=== PATIENT | male | born 1970 | race Two or more races ===

== ENCOUNTER 2020-03-02 16:57 | Outpatient (REF) | payer OTHER, SELFPAY | END 2020-03-02 16:58 | disposition home or self-care (01) | LOC: HO.LAB 16:57 | PROVIDERS: Visit Provider Internal Medicine | DX: Z20.828 Contact with and (suspected) exposure to other viral communicable diseases (principal) | CPT/HCPCS: C9803; U0003 ==

== ENCOUNTER 2020-03-09 16:36 | Outpatient (REF) | payer OTHER, SELFPAY | END 2020-03-09 16:37 | disposition home or self-care (01) | LOC: HO.LAB 16:36 | PROVIDERS: Visit Provider Internal Medicine | DX: Z20.822 Contact with and (suspected) exposure to COVID-19 (principal) | CPT/HCPCS: 36415; C9803; U0003 ==

== ENCOUNTER 2022-02-02 15:20 | Emergency (ER) | payer OTHER, SELFPAY ==
--- NOTE | ~2022-02-02 | XR_ITS ---
EXAMINATION: XR CHEST CLINICAL INFORMATION: Chest pain and shortness of breath. Influenza. COMPARISON: Previous chest x-ray December 2006 TECHNIQUE: 2 views of the chest were obtained. FINDINGS: The cardiac and mediastinal contours are normal. The lungs are clear. There is no pleural effusion or pneumothorax. There are degenerative changes of the spine. XR/XR chest 2V IMPRESSION: No evidence for acute disease in the chest.
[2022-02-02 15:24] VITALS: BP 116/74; PULSE 125; RESP 20; TEMP 37.4; O2SAT 97; BMI 25.7
--- NOTE | 2022-02-02 15:38 | ED_ITS ---
HPI - Chest Pain General Chief Complaint: Chest Pain <Jovan Joyce MD - Last Filed: 02/02/22 15:42> Stated Complaint: Chest Pain <Jovan Joyce MD - Last Filed: 02/02/22 15:42> Time Seen by Provider: 02/02/22 18:25 <Jovan Joyce MD - Last Filed: 02/02/22 15:42> Source: patient <Thomas Urrutia MD - Last Filed: 02/03/22 00:01> Mode of arrival: ambulatory <Thomas Urrutia MD - Last Filed: 02/03/22 00:01> History of Present Illness HPI narrative: Patient with healthy been having cold symptoms for last 2 days with cough more body aches rhinorrhea nausea vomiting few times was seen at [facility] influenza a was positive <Thomas Urrutia MD - Last File d: 02/03/22 00:01> Related Data Home Medications: Previous Rx's Medication Instructions Recorded codeine 10 mg-guaifenesin 100 mg/5 10 ml PO Q6H PRN cough #237 mL 02/02/22 mL oral liquid ibuprofen 600 mg tablet 600 mg PO Q6H PRN fever or pain 02/02/22 #30 tabs oseltamivir 75 mg capsule (Tamiflu) 75 mg PO BID 5 days #10 caps 02/02/22 <Jovan Joyce MD - Last Filed: 02/02/22 15:42> Allergies/Adverse Reactions: Allergies Allergy/AdvReac Type Severity Reaction Status Date / Time No Known Allergies Allergy Unverified 11/21/19 17:12 [No Known Allergies*] <Jovan Joyce MD - Last Filed: 02/02/22 15:42> Review of Systems Review of Systems: Yes all other systems are reviewed and are negative <Thomas Urrutia MD - Last Filed: 02/03/22 00:01> [facility] Social History Social History: Social History Smoked in Last 30 Days: No Use of substances other than those prescribed or required for medical reasons: No Advance Directives: No Advance Directives Information Provided: Yes <Jovan Joyce MD - Last Filed: 02/02/22 15:42> Physical Exam Vital Signs: Vital Signs: Last Vital Signs Temp 99.9 F 02/02/22 20:57 Pulse 120 H 02/02/22 20:57 Resp 20 02/02/22 20:57 BP 126/60 02/02/22 20:57 Pulse Ox 97 02/02/22 20:57 O2 Del Method 02/02/22 20:57 BMI result Body Mass Index 25.7 <Jovan Joyce MD - Last Filed: 02/02/22 15:42> Vital Signs: Last Vital Signs Temp 99.9 F 02/02/22 20:57 Pulse 120 H 02/02/22 20:57 Resp 20 02/02/22 20:57 BP 126/60 02/02/22 20:57 Pulse Ox 97 02/02/22 20:57 O2 Del Method 02/02/22 20:57 BMI result Body Mass Index 25.7 <Thomas Urrutia MD - Last Filed: 02/03/22 00:01> Appearance: Alert. Oriented X3. Mild distress complaining of pain although Eyes: PERRLA, No Nystagmus ENT: Pharynx normal. Oral Mucosa moist Neck: Normal inspection. Neck supple. CVS: Normal heart rate and rhythm. Pulses normal. Respiratory: No respiratory distress. Equal air entry bilateral, no wheezing/rales/rhonchi Abdomen: Soft and nontender. Bowel sounds are present, no mass palpable, no CVA tenderness Skin: Skin warm and dry. Normal skin color. Normal skin turgor. Extremities: No lower extremity edema. No calf tenderness Neuro: Oriented X 3. No motor deficit. <Thomas Urrutia MD - Last Filed: 02/03/22 00:01> Course Course Course Narrative: RME: 51-year-old male who presents emergency department for evaluation of cough, fever, chills, nasal congestion, body aches, vomiting, shortness of breath x2 days. Patient went to [email or web address] and had a positive influenza test but a negative COVID-19 test. He was then sent to the emergency department evaluation . Patient has a history of asthma. Vital signs revealed an elevated pulse of 125, O2 sat was 97% on room air. Patient is awake and alert, he does have an productive sounding cough, does not appear to be dyspneic, head normocephalic atraumatic HEENT was normal, lungs clear to auscultation, heart tachycardia normal S1-S2 no murmurs rubs or gallops, abdomen soft nontender, extremities were normal, neuro exam nonfocal. I ordered a CBC and CMP, chest x- ray two view. Patient was ordered to get normal saline IV x1 L, Toradol 15 mg IV and Zofran 4 mg IV. <Jovan Joyce MD - Last Filed: 02/02/22 15:42> Medications Administered Discontinued Medications Generic Name Dose Route Start Last Admin Trade Name Freq PRN Reason Stop Dose Admin Sodium Chloride 1,000 mls @ 999 mls/hr 02/02/22 15:39 02/02/22 18:41 Ns IV 02/02/22 16:39 999 mls/hr .Q1H1M STA Administration Ketorolac Tromethamine 15 mg 02/02/22 15:39 02/02/22 18:41 Ketorolac Tromethamine 15 Mg/Ml Vial IVPUSH 02/02/22 15:40 15 mg ONCE STA Administration Ondansetron HCl 4 mg 02/02/22 15:39 02/02/22 18:41 Ondansetron Hcl 4 Mg/2 Ml Vial IVPUSH 02/02/22 15:40 4 mg ONCE ONE Administration Oseltamivir Phosphate 75 mg 02/02/22 18:34 02/02/22 18:42 Oseltamivir Phosphate 75 Mg Capsule PO 02/02/22 18:35 75 mg ONCE ONE Administration <Jovan Joyce MD - Last Filed: 02/02/22 15:42> Medications Administered Discontinued Medications Generic Name Dose Route Start Last Admin Trade Name Freq PRN Reason Stop Dose Admin Sodium Chloride 1,000 mls @ 999 mls/hr 02/02/22 15:39 02/02/22 18:41 Ns IV 02/02/22 16:39 999 mls/hr .Q1H1M STA Administration Ketorolac Tromethamine 15 mg 02/02/22 15:39 02/02/22 18:41 Ketorolac Tromethamine 15 Mg/Ml Vial IVPUSH 02/02/22 15:40 15 mg ONCE STA Administration Ondansetron HCl 4 mg 02/02/22 15:39 02/02/22 18:41 Ondansetron Hcl 4 Mg/2 Ml Vial IVPUSH 02/02/22 15:40 4 mg ONCE ONE Administration Oseltamivir Phosphate 75 mg 02/02/22 18:34 02/02/22 18:42 Oseltamivir Phosphate 75 Mg Capsule PO 02/02/22 18:35 75 mg ONCE ONE Administration <Thomas Urrutia MD - Last Filed: 02/03/22 00:01> MDM - Chest Pain Lab Data Result diagrams: : 02/02/22 17:26 02/02/22 17:26 <Jovan Joyce MD - Last Filed: 02/02/22 15:42> Labs: Lab Results 02/02/22 02/02/22 Range/Units 17:26 17:26 WBC 5.4 (4.8-10.8) X10*3/uL RBC 5.46 (4.60-5.80) X10*6/uL Hgb 15.5 (14.0-18.0) g/dl Hct 46.7 (42.0-52.0) % MCV 85.5 (80.0-98.0) fL MCH 28.4 (27.0-33.0) pg MCHC 33.2 (31.0-36.0) g/dl RDW 12.9 (11.0-16.0) % Plt Count 209 (160-400) X10*3/uL MPV 9.8 (9.4-12.4) fL Immature Gran % (Auto) 0.2 (0.0-0.4) % Neut % (Auto) 73.4 H (45-73) % Lymph % (Auto) 7.3 L (20-40) % [place] % (Auto) 18.3 H (2-11) % Eos % (Auto) 0.2 (0-4) % Baso % (Auto) 0.6 (0-2) % Lymph # (Auto) 0.4 L (1.2-4.9) X10*3/uL [place] # (Auto) 1.0 (0.1-1.2) X10*3/uL Eos # (Auto) 0.0 (0.0-0.4) X10*3/uL Baso # (Auto) 0.0 (0.0-0.2) X10*3/uL Abs Immat Gran (auto) 0.01 (0.00-0.03) X10*3/uL Absolute Neuts (auto) 3.9 (2.0-8.3) x10*3/uL Absolute Nucleated RBC 0.000 (0.0-0.012) X10*3/uL Nucleated RBC % (auto) 0.0 (0.0-0.2) /100WBC Sodium 137 (135-145) mmol/L Potassium 4.2 (3.3-5.1) mmol/L Chloride 102 (96-108) mmol/L Carbon Dioxide 25 (22-29) mmol/L Anion Gap 14 (12-20) BUN 12 (9-16) mg/dL Creatinine 1.19 (0.5-1.4) mg/dL Estim Creat Clear Calc 64.6 Estimated GFR > 60 Random Glucose 92 (60-115) mg/dL Calcium 9.3 (8.4-10.2) mg/dL Total Bilirubin 0.6 (0.0-1.0) mg/dL AST 33 (5-37) U/L ALT 56 H (0-40) U/L Alkaline Phosphatase 98 (39-117) U/L Total Protein 7.2 (6.5-8.0) g/dL Albumin 4.4 (3.5-5.0) g/dL <Jovan Joyce MD - Last Filed: 02/02/22 15:42> Lab Results 02/02/22 02/02/22 Range/Units 17:26 17:26 WBC 5.4 (4.8-10.8) X10*3/uL RBC 5.46 (4.60-5.80) X10*6/uL Hgb 15.5 (14.0-18.0) g/dl Hct 46.7 (42.0-52.0) % MCV 85.5 (80.0-98.0) fL MCH 28.4 (27.0-33.0) pg MCHC 33.2 (31.0-36.0) g/dl RDW 12.9 (11.0-16.0) % Plt Count 209 (160-400) X10*3/uL MPV 9.8 (9.4-12.4) fL Immature Gran % (Auto) 0.2 (0.0-0.4) % Neut % (Auto) 73.4 H (45-73) % Lymph % (Auto) 7.3 L (20-40) % [place] % (Auto) 18.3 H (2-11) % Eos % (Auto) 0.2 (0-4) % Baso % (Auto) 0.6 (0-2) % Lymph # (Auto) 0.4 L (1.2-4.9) X10*3/uL [place] # (Auto) 1.0 (0.1-1.2) X10*3/uL Eos # (Auto) 0.0 (0.0-0.4) X10*3/uL Baso # (Auto) 0.0 (0.0-0.2) X10*3/uL Abs Immat Gran (auto) 0.01 (0.00-0.03) X10*3/uL Absolute Neuts (auto) 3.9 (2.0-8.3) x10*3/uL Absolute Nucleated RBC 0.000 (0.0-0.012) X10*3/uL Nucleated RBC % (auto) 0.0 (0.0-0.2) /100WBC Sodium 137 (135-145) mmol/L Potassium 4.2 (3.3-5.1) mmol/L Chloride 102 (96-108) mmol/L Carbon Dioxide 25 (22-29) mmol/L Anion Gap 14 (12-20) BUN 12 (9-16) mg/dL Creatinine 1.19 (0.5-1.4) mg/dL Estim Creat Clear Calc 64.6 Estimated GFR > 60 Random Glucose 92 (60-115) mg/dL Calcium 9.3 (8.4-10.2) mg/dL Total Bilirubin 0.6 (0.0-1.0) mg/dL AST 33 (5-37) U/L ALT 56 H (0-40) U/L Alkaline Phosphatase 98 (39-117) U/L Total Protein 7.2 (6.5-8.0) g/dL Albumin 4.4 (3.5-5.0) g/dL <Thomas Urrutia MD - Last Filed: 02/03/22 00:01> Discharge Plan Discharge Clinical Impression: Influenza A <Jovan Joyce MD - Last Filed: 02/02/22 15:42> Patient Disposition: Home, Self-Care <Jovan Joyce MD - Last Filed: 02/02/22 15:42> Instructions: Influenza (ED) <Jovan Joyce MD - Last Filed: 02/02/22 15:42> Additional Instructions: Drink plenty of fluids Tylenol/Motrin for pain and fever Follow-up with PCP <Jovan Joyce MD - Last Filed: 02/02/22 15:42> Prescriptions: New oseltamivir [Tamiflu] 75 mg capsule 75 mg PO BID 5 Days Qty: 10 0RF codeine-guaifenesin 10-100 mg/5 mL liquid 10 ml PO Q6H PRN (Reason: cough) Qty: 237 0RF ibuprofen 600 mg tablet 600 mg PO Q6H PRN (Reason: fever or pain) Qty: 30 0RF <Jovan Joyce MD - Last Filed: 02/02/22 15:42> Stand Alone Forms: Work/School Release <Jovan Joyce MD - Last Filed: 02/02/22 15:42> Interventions: ED Discharge Assessment Last Done: 02/02/22 21:05 <Jovan Joyce MD - Last Filed: 02/02/22 15:42> Discharge Date/Time: 02/02/22 21:05 <Jovan Joyce MD - Last Filed: 02/02/22 15:42> Print Language: Syriac <Jovan Joyce MD - Last Filed: 02/02/22 15:42>
--- NOTE | 2022-02-02 16:22 | ECG_ITS ---
Test Reason : CP Blood Pressure : / mmHG Vent. Rate : 129 BPM Atrial Rate : 129 BPM P-R Int : 148 ms QRS Dur : 066 ms QT Int : 298 ms P-R-T Axes : 063 -04 033 degrees QTc Int : 436 ms Sinus tachycardia Otherwise normal ECG When compared with ECG of 26-SEP-2017 20:44, No significant change was found Referred By: Jovan Joyce Electronically Signed By:Loyd Mckeon
[2022-02-02 17:29] LABS: MANUAL DIFF FLAG NO
[2022-02-02 17:35] LABS: Basophils Percent Auto 0.6 % (0-2); Eosinophils Percent Auto 0.2 % (0-4); Hematocrit 46.7 % (42.0-52.0); Hemoglobin 15.5 g/dl (14.0-18.0); Imm Gran Abs Auto 0.01 X10*3/uL (0.00-0.03); Imm Gran Pct Auto 0.2 % (0.0-0.4); Lymphocytes Absolute Auto 0.4 X10*3/uL (1.2-4.9); Lymphocytes Percent Auto 7.3 % (20-40); Mean Corpuscular HGB Conc 33.2 g/dl (31.0-36.0); Mean Corpuscular Hemoglobin 28.4 pg (27.0-33.0); Mean Corpuscular Volume 85.5 fL (80.0-98.0); Mean Platelet Volume 9.8 fL (9.4-12.4); Monocytes Percent Auto 18.3 % (2-11); Neutrophils Absolute Auto 3.9 x10*3/uL (2.0-8.3); Neutrophils Percent Auto 73.4 % (45-73); Platelet Count 209 X10*3/uL (160-400); Red Blood Count 5.46 X10*6/uL (4.60-5.80); Red Cell Distribution Width 12.9 % (11.0-16.0); White Blood Count 5.4 X10*3/uL (4.8-10.8)
[2022-02-02 17:51] LABS: Alanine Aminotransferase 56 U/L (0-40); Albumin Level 4.4 g/dL (3.5-5.0); Alkaline Phosphatase 98 U/L (39-117); Anion Gap 14 (12-20); Aspartate Amino Transferase 33 U/L (5-37); Bilirubin Total 0.6 mg/dL (0.0-1.0); Blood Urea Nitrogen 12 mg/dL (9-16); Calcium 9.3 mg/dL (8.4-10.2); Carbon Dioxide 25 mmol/L (22-29); Chloride 102 mmol/L (96-108); Creatinine Clr Calc Pharmacy 64.6; Estimated Glomerular Filt Rate > 60; Glucose Random 92 mg/dL (60-115); Potassium 4.2 mmol/L (3.3-5.1); Sodium 137 mmol/L (135-145); Total Protein 7.2 g/dL (6.5-8.0)
[2022-02-02 18:26] VITALS: BP 119/50; PULSE 126; RESP 20; TEMP 37.8; O2SAT 98
[2022-02-02] MEDS: ondansetron HCL 4 MG/2 ML VIAL IVPUSH (18:41)
[2022-02-02] MEDS: Ketorolac Tromethamine 15 MG/ML VIAL IVPUSH (18:41)
[2022-02-02] MEDS: 0.9 % Sodium Chloride 1,000 ML 999 ML IV (18:41)
[2022-02-02] MEDS: Oseltamivir Phosphate 75 MG CAPSULE PO (18:42)
[2022-02-02 20:57] VITALS: BP 126/60; PULSE 120; RESP 20; TEMP 37.7; O2SAT 97
== END 2022-02-02 21:05 | disposition home or self-care (01) ==
PROVIDERS: Emergency Medicine Emergency Medical Services; Emergency Provider Internal Medicine; PCP Internal Medicine
DX: J11.1 Influenza due to unidentified influenza virus with other respiratory manifestations (principal); R50.9 Fever, unspecified
CPT/HCPCS: 36415; 71046; 80053; 85025; 93005; 96374; 96375; 99284; 99285; J1885; J2405